=== PATIENT | female | born 1980 | race Caucasian/White ===

== ENCOUNTER 2022-02-08 08:42 | Outpatient (CLI) | payer SELFPAY ==
--- NOTE | ~2022-02-08 | MMUS_ITS ---
EXAMINATION: MM diagnostic zari BI w davide, US breast BI limited HISTORY: Left axillary swelling for one month TECHNIQUE: Full field and spot ML, MLO and CC 3-D tomosynthesis images of both breasts were performed and synthetic 2-D images were generated. CAD analysis was submitted and interpreted. High resolution bilateral upper outer and lower-outer quadrant breast ultrasound was performed. COMPARISON: None BREAST PARENCHYMAL COMPOSITION: The breasts are heterogeneously dense, which may obscure small masses . FINDINGS: MAMMOGRAPHIC FINDINGS: No suspicious mass or architectural distortion, malignant calcification, skin thickening or retractio n is detected. The heterogeneously dense stroma may obscure small masses. Bilateral upper outer and l ower-outer quadrant breast and left axillary ultrasound examination was performed ULTRASOUND: Right breast: No suspicious mass or shadowing, cyst or other significant abnormality of the upper out er or lower outer quadrants of the right breast Left breast: There is a parallel circumscribed sonolucency measuring 3.4 x 6.8 x 5.4 mm at the left b reast 12:00 subareolar area, with through transmission posterior enhancement, consistent with cyst. Benign appearing left axillary lymph nodes are noted. No other significant abnormality of the upper outer or lower outer quadrants of the left breast. IMPRESSION: 1. Benign left breast 12:00 cyst 2. Routine mammographic screening is recommended. BI-RADS Category 2: Benign finding(s). Reviewed, dictated and finalized at location A. IMPRESSION: 1. Benign left breast 12:00 cyst 2. Routine mammographic screening is recommended. BI-RADS Category 2: Benign finding(s).
== END 2022-02-08 08:43 ==
DX: R22.32 Localized swelling, mass and lump, left upper limb (principal); N60.19 Diffuse cystic mastopathy of unspecified breast
CPT/HCPCS: 76642; 77062; 77066; G0279

== ENCOUNTER → 2022-10-25 08:07 | Outpatient (CLI) | payer SELFPAY ==
--- NOTE | ~2022-10-25 | CT_ITS ---
EXAMINATION: CT abdomen pelvis w con INDICATION: Left lower quadrant mass and swelling TECHNIQUE: Computed tomographic images of the abdomen and pelvis were obtained after the administrati on of 100 cc of Omnipaque 350 intravenous contrast. The dose-length product (DLP) was 547.80 mGy-cm. Automated exposure control and iterative reconstruction technique were employed. COMPARISON: None available FINDINGS: The liver, spleen, pancreas, gallbladder, and adrenal glands are normal. Hypoattenuating le sions in the kidneys, measuring up to 7 mm on the left, are too small to characterize but likely repr esent cysts. No pathologically enlarged abdominal or pelvic lymph nodes are identified. No free intra peritoneal gas or evidence of bowel obstruction. The appendix is normal. No suspicious mass is identi fied in the marked area of clinical concern. IMPRESSION: 1. No CT correlate for the patient's symptoms. Reviewed, dictated and finalized at location A.
== END ==
PROVIDERS: PCP Internal Medicine; Visit Provider Internal Medicine
DX: R19.04 Left lower quadrant abdominal swelling, mass and lump (principal)
CPT/HCPCS: 74177; Q9967